=== PATIENT | female | born 1950 | race Caucasian/White ===

== ENCOUNTER 2017-01-08 09:10 | Emergency (ER) | payer MEDICARE, OTHER ==
[2017-01-08 09:17] VITALS: RESP 18; TEMP 98.4; O2SAT 98
[2017-01-08] MEDS ORDERED: Naproxen 550 mg Tab PO STA (10:27)
[2017-01-08] MEDS ORDERED: Naproxen 550 mg Tab PO ONE (10:32)
--- NOTE | 2017-01-08 10:40 | C.PDOC ---
History Of Present Illness 66 y/o female presents to ED with complaints of painful rash on left back for 1 week. Patient reports taking motrin with no relief. Patient denies medical problems, fever, falls or injuries. No other complaints at this time. Time Seen by Provider: 01/08/17 09:31 Chief Complaint (Nursing): Abnormal Skin Integrity History Per: Patient History/Exam Limitations: no limitations Onset/Duration Of Symptoms: Days Current Symptoms Are (Timing): Still Present Location Of Injury: Left: Back Past Medical History Reviewed: Historical Data, Nursing Documentation, Vital Signs Vital Signs: Last Vital Signs Temp 98.4 F 01/08/17 09:15 Pulse 75 01/08/17 10:58 Resp 18 01/08/17 10:58 BP 136/75 01/08/17 10:58 Pulse Ox 98 01/08/17 10:58 Family History: States: No Known Family Hx - Social History Hx Alcohol Use: No Hx Substance Use: No - Immunization History Hx Tetanus Toxoid Vaccination: No Hx Influenza Vaccination: Yes Hx Pneumococcal Vaccination: Yes Review Of Systems Except As Marked, All Systems Reviewed And Found Negative. Constitutional: Negative for: Fever Cardiovascular: Negative for: Chest Pain Respiratory: Negative for: Shortness of Breath Skin: Positive for: Rash Physical Exam - Physical Exam Appears: Other (In mild pain) Skin: Warm, No Dry Head: Atraumatic, Normacephalic Back: Other (Vesicular rash to mid back, T9 dermatome) Extremity: Normal ROM ED Course And Treatment O2 Sat by Pulse Oximetry: 98 (RA) Pulse Ox Interpretation: Normal Progress Note: Patient given Naproxen and Zovirax Medical Decision Making Medical Decision Making: Patient was discharged with medications and advised to follow up with PMD Disposition Counseled Patient/Family Regarding: Diagnosis, Need For Followup, Rx Given - Disposition Referrals: Lucy Hollins MD [Staff Provider] - Disposition: HOME/ ROUTINE Disposition Time: 10:45 Condition: STABLE Additional Instructions: FOLLOW UP WITH YOUR DOCTOR IN 1-2 DAYS USE MEDICATIONS DIRECTED RETURN TO ER IF SYMPTOMS WORSEN Prescriptions: Acetaminophen with Codeine [Tylenol with Codeine #3 Tablet] 1 each PO Q6 PRN # 12 tablet PRN Reason: pain Acyclovir [Zovirax] 800 mg PO 5XD #35 tab Gabapentin 300 mg PO TID #21 capsule Instructions: Shingles (ED) Print Language: BOTSWANAN - Clinical Impression Clinical Impression: Elma - Danaibdeepti Statement The provider has reviewed the documentation as recorded by the Danaibdeepti Camejo All medical record entries made by the Danaibdeepti were at my direction and personally dictated by me. I have reviewed the chart and agree that the record accurately reflects my personal performance of the history, physical exam, medical decision making, and the department course for this patient. I have also personally directed, reviewed, and agree with the discharge instructions and disposition.
[2017-01-08 10:59] VITALS: BP 136/75; PULSE 75
== END 2017-01-08 10:59 | disposition home or self-care (01) ==
LOC: C.ER 09:10
DX: B02.9 Zoster without complications (principal)

== ENCOUNTER 2017-11-16 09:45 | Day surgery (SDC) | payer MEDICARE, OTHER ==
--- NOTE | 2017-11-16 11:46 | CP.SDSHP ---
Same Day Surgery H & P - History Proposed Procedure: US guided FNA of left thyroid nodule Pre-Op Diagnosis: Thyroid nodule - Allergies Allergies: Allergies No Known Allergies Allergy (Verified 01/08/17 09:17) - Physical Exam Vital Signs: Vital Signs 11/16/17 10:07 Temperature 97.2 F L Pulse Rate 81 Respiratory 20 Rate Blood Pressure 176/82 H O2 Sat by Pulse 98 Oximetry Mental Status: Alert & Oriented x3 Neuro: WNL Heart: WNL - Impression Impression: Pt with a left thyroid nodule refered for FNA. PLAN US guided FNA. Pt. Evaluated Today:Candidate for Anesthesia & Procedure: No Short Stay Discharge - Short Stay Discharge Admitting Diagnosis/Reason for Visit: E05.1 Disposition: HOME/ ROUTINE
--- NOTE | 2017-11-16 11:49 | PCM.SURG1 ---
Surgeon's Initial Post Op Note - Surgeon's Notes Surgeon: Giovani Leroy MD [employer] Ecologist: NONE Type of Anesthesia: Local Pre-Operative Diagnosis: Thyroid nodule Operative Findings: US showed a 2.2 cm left thyroid nodule Post-Operative Diagnosis: Thyroid nodule Operation Performed: US guided FNA of left thyroid nodule Specimen/Specimens Removed: 25 g FNA x 5 Estimated Blood Loss: EBL {In ML}: 0 Blood Products Given: N/A Drains Used: No Drains Post-Op Condition: Good Date of Surgery/Procedure: 11/16/17 Time of Surgery/Procedure: 11:45
--- NOTE | 2017-11-16 11:57 | US ---
PROCEDURE: Date of Procedure: 11/16/2017 PROCEDURE: 1. Ultrasound guided FNA of left thyroid nodule, CPT 21676 2. Ultrasound guidance for FNA, 07303 Medications: 3cc 1% Lidocaine HISTORY: Enlarged left thyroid nodule. TECHNIQUE: Following informed consent and procedure time-out, a limited ultrasound patient's neck confirmed the presence of a 2.2 cm complex left thyroid nodule which is predominantly solid. After the patient's neck was prepped and draped in the usual sterile fashion, the skin was anesthetized with 1% lidocaine. Ultrasound-guided fine needle aspiration was then performed of the dominant left thyroid nodule. A total of 5 passes were made into the nodule with 25 gauge needle under ultrasound guidance. The FNA specimen was sent for routine pathology. Post biopsy ultrasound showed no hematoma. IMPRESSION: Ultrasound-guided FNA of the dominant left thyroid nodule.
[2017-11-16 12:24] VITALS: BP 154/68; PULSE 64; RESP 18; TEMP 97.8; O2SAT 100
== END 2017-11-16 12:20 | disposition home or self-care (01) ==
LOC: C.SPRAD 09:45
PROVIDERS: ATTEND Radiology Vascular & Interventional Radiology
DX: E04.1 Nontoxic single thyroid nodule (principal)